=== PATIENT | male | born 1945 | race African-American/Black ===

== ENCOUNTER 2022-03-28 14:30 | Emergency (ER) | payer MEDICARE, SELFPAY ==
[2022-03-28 14:49] VITALS: BMI 25.7
[2022-03-28 15:09] VITALS: BP 138/85; PULSE 78; RESP 17; TEMP 36.8; O2SAT 98; BMI 25.7
[2022-03-28 15:10] VITALS: BP 138/85; PULSE 78; RESP 17; TEMP 36.8; O2SAT 98
== END 2022-03-28 15:12 | disposition home or self-care (01) ==
PROVIDERS: Emergency Provider Nurse Practitioner Family; PCP Nurse Practitioner Family
DX: Z23 Encounter for immunization (principal)
CPT/HCPCS: 90471; G0008